=== PATIENT | female | born 1970 | race Caucasian/White ===

== ENCOUNTER 2018-07-13 06:21 | Emergency (ER) | payer OTHER | END 2018-07-13 07:10 | disposition home or self-care (01) | LOC: MADERS 06:21 | DX: K04.7 Periapical abscess without sinus (principal); K02.9 Dental caries, unspecified; F17.210 Nicotine dependence, cigarettes, uncomplicated | CPT/HCPCS: 99282 ==

== ENCOUNTER 2018-07-14 09:31 | Emergency (ER) | payer OTHER | END 2018-07-14 10:10 | disposition home or self-care (01) | LOC: MADERS 09:31 | DX: K04.7 Periapical abscess without sinus (principal); K02.9 Dental caries, unspecified; G43.909 Migraine, unspecified, not intractable, without status migrainosus; F17.210 Nicotine dependence, cigarettes, uncomplicated; Z79.01 Long term (current) use of anticoagulants | CPT/HCPCS: 99281 ==